=== PATIENT | female | born 1955 | race Two or more races ===

== ENCOUNTER 2023-02-10 14:00 | Emergency (ER) | payer OTHER ==
[2023-02-10 15:06] VITALS: BP 176/96
[2023-02-10] MEDS ORDERED: ACETAMINOPHEN 500 MG TAB PO ONE (15:15)
[2023-02-10] MEDS ORDERED: IBUP800T27 PO (17:54)
[2023-02-10] MEDS ORDERED: METH750T22 PO (17:54)
== END 2023-02-10 18:01 | disposition home or self-care (01) ==
LOC: ER 14:00
DX: S23.41XA Sprain of ribs, initial encounter (principal); R51.9 Headache, unspecified; I10 Essential (primary) hypertension; E11.9 Type 2 diabetes mellitus without complications; Z79.1 Long term (current) use of non-steroidal anti-inflammatories (NSAID); Z79.899 Other long term (current) drug therapy; W01.198A Fall on same level from slipping, tripping and stumbling with subsequent striking against other object, initial encounter; Y93.89 Activity, other specified; Y92.89 Other specified places as the place of occurrence of the external cause; Y99.8 Other external cause status
CPT/HCPCS: 70450; 70551; 71101

== ENCOUNTER 2023-11-23 08:34 | Emergency (ER) | payer OTHER ==
[~2023-11-23] VITALS: Ht 165.1 cm; Wt 99.7 kg
[~2023-11-23 08:34] MED LIST: IBUP-1456 PO; METH-1182 PO
[2023-11-23 09:00] VITALS: BP 157/75
[2023-11-23] MEDS ORDERED: cefTRIAXone SOD 1,000 MG VL IM ONE (09:15)
[2023-11-23] MEDS ORDERED: TETANUS-DIPTH-ACEL PERTUSSIS 0.5ML SYR Tdap IM ONE (09:15)
[2023-11-23] MEDS ORDERED: IBUPROFEN 800 MG TAB PO ONE (10:15)
[2023-11-23 10:27] VITALS: PULSE 100; RESP 18; O2SAT 95
[2023-11-23] MEDS ORDERED: CEPH500C PO (10:34)
[2023-11-23] MEDS ORDERED: IBUP-1456 PO (10:34)
[2023-11-23 10:35] VITALS: TEMP 98.6
== END 2023-11-23 10:41 | disposition home or self-care (01) ==
LOC: ER 08:34
DX: S62.630A Displaced fracture of distal phalanx of right index finger, initial encounter for closed fracture (principal); S68.110A Complete traumatic metacarpophalangeal amputation of right index finger, initial encounter; I10 Essential (primary) hypertension; E11.9 Type 2 diabetes mellitus without complications; Z79.1 Long term (current) use of non-steroidal anti-inflammatories (NSAID); Z79.899 Other long term (current) drug therapy; W18.39XA Other fall on same level, initial encounter; Y93.89 Activity, other specified; Y92.89 Other specified places as the place of occurrence of the external cause; Y99.8 Other external cause status
CPT/HCPCS: 73140; 90471; 90715; 96372; 99284; J0696

== ENCOUNTER 2025-02-17 18:30 | Inpatient (IN) | payer BC, MEDICARE ==
[2025-02-16] MEDS: cefTRIAXone 1GM/50ML D5W 50 ML IV ONE (23:00)
[~2025-02-17] VITALS: Ht 165.1 cm; Wt 94.3 kg
[~2025-02-17 18:30] MED LIST changes: +CEPH500C PO
--- NOTE | 2025-02-17 18:45 | ED.PDOC ---
SOB-HPI HPI Comments HPI: Poor Historian. 69-year-old female sent from Dr. FERRELL's clinic for incidental finding of 89% pulse ox on room air. Patient does not use oxygen at home. Patient has history of COPD. Patient was then at the clinic today for routine follow-up and lab draws that she had two weeks ago. Patient states she is always having baseline shortness of breath and this is unchanged in characteristics. Shortness of breath is worse with exertion. Patient is not on blood thinners. Past Medical History: Diabetes hypertension COPD kidney stones Past Surgical History: Varicose vein surgeries REVIEW OF SYSTEMS: CONSTITUTIONAL: Denies acute: fever, diaphoresis, chills, generalized weakness. HEAD: Denies acute: headache, photophobia Eyes: Denies acute: Double vision, vision loss, eye pain, eye discharge. EARS: Denies acute: tinnitus, hearing loss, ear discharge, ear pain, THROAT: Denies acute: sore throat, swelling, difficulty swallowing , pain with sw allowing, change in voice. NECK: Denies acute: neck pain, neck swelling, stiff neck. HEART: Denies acute : chest pain, palpitations, LUNGS: Denies acute: wheezing, cough, hemoptysis ABDOMEN: Denies acute: abdominal pain, Nausea, Vomiting, diarrhea, melena , hematemesis, hematochezia SKIN: Denies acute: rash, redness, lesions, itchiness. EXTREMITIES: Denies acute: calf pain, numbness, tingling, weakness, denies pain in extremity. Denies acute: Low back pain. Neuro: Denies acute: focal neurological deficit, motor or sensory focal neurological deficit, tremors, seizure like activity, confusion, dizziness, change in mental status, loss of bowel or bladder function, cauda equina like symptoms. : Denies acute: dysuria, hematuria, flank pain, increase in urinary frequency. PSYCH: Denies acute: hallucination, suicidal ideation, homicidal ideation. FEMALE: Denies acute: abnormal vaginal bleeding, foul odor, unusual discharge. PHYSICAL EXAM: General: ----no----acute distress, awake and alert. Head: normocephalic, atraumatic. Neck: supple, trachea is midline, no swelling. Throat: Normal phonation. Eyes:, no erythema, no purulent discharge, no proptosis, no icterus. Heart: regular rate, regular rhythm, no significant murmur appreciated. Lungs: no apparent respiratory distress, Able to speak in full sentences. No wheezing, no rhonchi, no crackles. No stridors Clear to auscultation bilaterally. Abdomen: non tender to palpation, non distended, soft, no guarding, no rebound, + bowel sounds. Neuro: Awake, Alert, oriented to name, self, situation, follows commands GCS=15. Speech is normal. Skin: no petechia, no purpura, no cyanosis, non-pale, not jaundice. Lower extremities: --no - Pitting edema no deformity, no focal swelling, no calf TTP. Makes eye contact. moves all four extremities. Face: no apparent facial droop. Ambulating in the ED independently. 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 Was a procedure done?: No Differential Dx Differential Diagnosis: Other (DDx include ACS, unstable angina, anxiety, PE, pneumothroax, neoplasm, cardiac ischemia, COPD, asthma, CHF, pleural effusion, tobacco abuse, pneumonia, hypoxia, hypercapnia, anemia., infection/sepsis., pulmonary edema. Asthma, Cardiac tamponade, infection.) X-Ray, Labs, Meds, VS Vital Signs Date Time Temp Pulse Resp B/P (MAP) Pulse Ox O2 Delivery O2 Flow Rate FiO2 02/17/25 18:57 20 94 Room Air* 0 21 02/17/25 18:47 85 02/17/25 18:43 97.9 87 20 155/53 (87) 93 97.9 Lab Test 02/17/25 21:53 02/17/25 20:12 02/17/25 19:42 02/17/25 18:56 Range/Units Troponin I High Sensitivity 3 L < 3 L 4 </=34 ng/L Blood Gas Specimen Type Arterial Blood Gas Sample Site Right radial Blood Gas Patient Temperature 37.0 Arterial Blood Date Drawn [id number] Arterial Blood pH 7.429 7.350-7.450 Arterial Blood Partial Pressure CO2 40.9 32.0-45.0 mmHg Arterial Blood Partial Pressure O2 61.5 L 83.0-108.0 mmHg Arterial Blood HCO3 26.5 21.0-28.0 mmol/L Arterial Blood Oxygen Saturation 91.1 L 94.0-98.0 % Arterial Blood Base Excess 2.0 -2.0-3.0 mmol/L Arterial Blood Oxyhemoglobin 90.2 L 94.0-98.0 % Arterial Blood Carboxyhemoglobin 0.5 0.5-1.5 % Arterial Blood Methemoglobin 0.5 0.0-1.5 % Stephen Test Modified Blood Gas Total Hemoglobin 13.20 12.0-16.0 g/dL Blood Gas Modality Room air FiO2 % 21.0 White Blood Count 10.2 4.4-10.8 10^3/uL Red Blood Count 4.70 4.0-5.20 10^6/uL Hemoglobin 12.3 12.2-16.2 g/dL Hematocrit 37.4 36.0-46.0 % Mean Corpuscular Volume 79.6 L 80.0-100.0 fL Mean Corpuscular Hemoglobin 26.3 L 28.0-32.0 pg Mean Corpuscular Hemoglobin Concent 33.0 32.0-36.0 g/dL Red Cell Distribution Width 15.8 H 11.8-14.3 % Platelet Count 376 140-450 10^3/uL Mean Platelet Volume 7.1 6.9-10.8 fL Neutrophils (%) (Auto) 64.2 37.0-80.0 % Lymphocytes (%) (Auto) 23.1 10.0-50.0 % Monocytes (%) (Auto) 9.0 0.0-12.0 % Eosinophils (%) (Auto) 2.8 0.0-7.0 % Basophils (%) (Auto) 0.9 0.0-2.0 % Neutrophils # (Auto) 6.5 1.6-8.6 10 ^3/uL Lymphocytes # (Auto) 2.4 0.4-5.4 10 ^3/uL Monocytes # (Auto) 0.9 0-1.3 10 ^3/uL Eosinophils # (Auto) 0.3 0-0.8 10 ^3/uL Basophils # (Auto) 0.1 0-0.2 10 ^3/uL Nucleated Red Blood Cells 0.1 % Sodium Level 137 136-145 mmol/L Potassium Level 4.0 3.5-5.1 mmol/L Chloride Level 102 98-107 mmol/L Carbon Dioxide Level 28 20-31 mmol/L Anion Gap 7 5-15 Blood Urea Nitrogen 15 9-23 mg/dL Creatinine 0.68 0.550-1.02 mg/dL Glomerular Filtration Rate Calc 95 >90 mL/min BUN/Creatinine Ratio 22.1 H 10.0-20.0 Serum Glucose 81 74-106 mg/dL Calcium Level 9.6 8.7-10.4 mg/dL Total Bilirubin 0.2 0.2-1.0 mg/dL Aspartate Amino Transferase (AST) 14 13-40 U/L Alanine Aminotransferase (ALT) 15 7-40 U/L Alkaline Phosphatase 86 46-116 U/L B-Type Natriuretic Peptide 38.48 0-100 pg/mL Total Protein 8.2 5.7-8.2 g/dL Albumin 4.2 3.2-4.8 g/dL Current Medications Medications (Trade) Dose Ordered Sig/Salbador Route Start Time Stop Time Status Last Admin Albuterol (Ventolin Medneb) 2.5 mg ONCE ONCE NEB 02/17/25 18:45 02/17/25 18:46 DC 02/17/25 18:57 Ipratropium [place] (Atrovent Medneb) 1 mg ONCE ONCE NEB 02/17/25 18:45 02/17/25 18:46 DC 02/17/25 18:55 Methylprednisolone Sodium Succinate (Solu Medrol) 125 mg ONCE ONCE IV 02/17/25 18:45 02/17/25 18:46 DC 02/18/25 00:09 Piperacillin Sod/ Tazobactam Sod 100 ml @ 100 mls/hr ONCE ONCE IV 02/17/25 20:00 02/17/25 20:59 DC 02/17/25 23:30 PATIENT: CHRIST MARTÍNEZDEANNAT: [id number]: [id number] : 1955 LOC: ER ROOM / BED: / AGE / SEX: 69 / F ADM STATUS: REG ER SERVICE 41 ORDERING PHYSICIAN: MARIAELENA SPENCE DO PROCEDURE(s): CXRP - CHEST PORTABLE REASON: sob ORDER NUMBER(s): [id number], ACCESSION NUMBER(s): [id number] CHEST RADIOGRAPH Indication: sob Technique: Single frontal view of the chest was obtained COMPARISON: None FINDINGS: Lines and Tubes: None Lungs: Scattered nodular densities throughout both lungs , suspicious for multifocal pneumonia. Pleura: No effusion. No pneumothorax. Cardiomediastinal contours: Unremarkable Bones: Unremarkable IMPRESSION: 1. Scattered nodular densities throughout both lungs , suspicious for multifocal pneumonia. ATED BY: HILARY BARRETT MD DICTATED DATE/TIME: 02/17/251933 SIGNED BY: HILARY BARRETT MD SIGNED DATE/TIME: 02/17/251933 Time of 1ST Reevaluation: 01:04 Reevaluation 1ST: Improved Patient Education/Counseling: Diagnosis, Treatment Family Education/Counseling: Other Comments Patient presented with the above HPI.--dyspnea----workup was initiated. patient was found with the above mentioned diagnosis. the following medications were ordered: please refer to order lists of meds and tests obtained by myself Dr. Spence. Patient ED course and VS have been stabilized. Patient has been reassessed in the ED and remained in a stable condition. Pertinent incidental findings were discussed with the patient and/or family. Patient/family voices understanding and is agreeable with plan. Patient has been observed in the ED adequate length of time to insure improvement/stability. Escalation of care considered: Consideration of escalation to observation or admission Patient was ADMITTED to the medicine team for further evaluation and treatment of their presentation. All the reports of any imaging studies that were ordered by myself were reviewed by myself. Departure 1 Departure Time of Disposition: 19:52 Impression: Primary Impression: Multifocal pneumonia Additional Impression: Hypoxia Disposition: ADMITTED INPATIENT Admit to: [facility] Condition: Guarded Discharged With: Self Critical Care Note Critical Care Time?: Yes (35 min-critical care time only) Heart Score Heart Score: Heart Score Response (Comments) Value History Slightly Suspicious 0 EKG Normal 0 Age >65 2 Risk Factors 1 or 2 risk factors 1 Troponin Normal limit 0 Total 3 I personally scribed for MARIAELENA SPENCE DO ([email or web address]) on 02/17/25 at 18:46. Electronically submitted by Cody Palmer ([email or web address]). I personally scribed for MARIAELENA SPENCE DO ([email or web address]) on 02/17/25 at 22:58. Electronically submitted by Mario Atkins ([email or web address]). MARIAELENA SPENCE DO Feb 17, 2025 18:45
[2025-02-17] MEDS: IPRATROPIUM BROM 0.5 MG/2.5ML INH SOL NEB ONE (18:55)
[2025-02-17] MEDS: ALBUTEROL SULF 2.5 MG/0.5ML(0.5%) NEB SOLN NEB ONE (18:57)
[2025-02-17 19:17] LABS: Basophils # (auto) 0.1 10 ^3/uL (0-0.2); Basophils % (auto) 0.9 % (0.0-2.0); Eosinophils # (auto) 0.3 10 ^3/uL (0-0.8); Eosinophils % (auto) 2.8 % (0.0-7.0); Hematocrit 37.4 % (36.0-46.0); Hemoglobin 12.3 g/dL (12.2-16.2); Lymphocytes # (auto) 2.4 10 ^3/uL (0.4-5.4); Lymphocytes % (auto) 23.1 % (10.0-50.0); Mean Corpuscular Hemoglobin 26.3 pg (28.0-32.0); Mean Corpuscular Volume 79.6 fL (80.0-100.0); Monocytes # (auto) 0.9 10 ^3/uL (0-1.3); Neutrophils # (auto) 6.5 10 ^3/uL (1.6-8.6); Neutrophils % (auto) 64.2 % (37.0-80.0); Nucleated Red Blood Cells % 0.1 %; Platelet Count (auto) 376 10^3/uL (140-450); Red Cell Distribution Width 15.8 % (11.8-14.3); White Blood Cell 10.2 10^3/uL (4.4-10.8)
--- NOTE | 2025-02-17 19:36 | DVH ---
CHEST RADIOGRAPH Indication: sob Technique: Single frontal view of the chest was obtained COMPARISON: None FINDINGS: Lines and Tubes: None Lungs: Scattered nodular densities throughout both lungs , suspicious for multifocal pneumonia. Pleura: No effusion. No pneumothorax. Cardiomediastinal contours: Unremarkable Bones: Unremarkable IMPRESSION: 1. Scattered nodular densities throughout both lungs , suspicious for multifocal pneumonia.
[2025-02-17 19:38] LABS: Alanine Aminotransferase 15 U/L (7-40); Albumin 4.2 g/dL (3.2-4.8); Alkaline Phosphatase 86 U/L (46-116); Anion Gap 7 (5-15); Aspartate Aminotransferase 14 U/L (13-40); BUN/Creatinine Ratio 22.1 (10.0-20.0); Blood Urea Nitrogen 15 mg/dL (9-23); Calcium 9.6 mg/dL (8.7-10.4); Carbon Dioxide 28 mmol/L (20-31); Chloride 102 mmol/L (98-107); Glucose 81 mg/dL (74-106); Sodium 137 mmol/L (136-145)
[2025-02-17 19:39] LABS: Bilirubin, Total 0.2 mg/dL (0.2-1.0); Total Protein 8.2 g/dL (5.7-8.2)
[2025-02-17] MEDS ORDERED: ONDANSETRON HCL 4 MG/2 ML VIAL IV PRN (23:15)
[2025-02-17] MEDS ORDERED: ACETAMINOPHEN 325 MG TAB PO PRN (23:15)
--- NOTE | 2025-02-17 23:18 | DVHHPRES ---
History of Present Illness Resident Creating Document: EDINSON STEWART RESIDENT History of Present Illness Patient is a 69-year-old female with past medical history of COPD, diabetes, hypertension who comes to the ER at the direction of her PCP. According to the patient and daughter, patient went to attend her regularly scheduled appointment with her PCP where her SpO2 was noted to be 89%, she received breathing treatment at the PCP's office but SpO2 did not improve and patient was subsequently told to go to the hospital. PCP is Dr. Jules. In the ER CXR showed scattered nodular densities possible multifocal pneumonia. On review of systems patient notes fatigue, cough, nausea and palpitations. Physical exam patient is noted to have trace wheezes throughout and 1+ lower extremity edema. Past Medical History COPD, diabetes, hypertension Past Surgical History Varicose vein surgery Smoke: No ALCOHOL: none Drugs: None Lives: with Family Review of Systems Constitutional: Yes: Malaise; No: Fever, Chills, Sweats, Weakness, Other Eyes: No: Pain, Vision change, Conjunctivae inflammation, Eyelid inflammation, Other, Redness ENT: No: Ear pain, Ear discharge, Nose pain, Nose discharge, Nose congestion, Mouth pain, Mouth swelling, Throat pain, Throat swelling, Other Respiratory: Cough; No: Dry, Shortness of breath, SOB with excertion, Wheezing, Hemoptysis, Pleuritic Pain, Sputum, Wheezing, Other Cardiovascular: Palpitations; No: Chest Pain, Orthopnea, Paroxysmal Noc. Dyspnea, Edema, Lt Headedness, Other Gastrointestinal: Nausea; No: Vomiting, Abdominal Pain, Diarrhea, Constipation, Melena, Hematochezia, Other Genitourinary: No Dysuria, No Frequency, No Incontinence, No Hematuria, No Retention, No Other Musculoskeletal: No: other, neck pain, shoulder pain, arm pain, back pain, hand pain, leg pain, foot pain Skin: No: Rash, Lesions, Jaundice, Bruising, Other Neurological: No: Weakness, Numbness, Incoordination, Change in speech, Confusion, Seizures, Other Allergies: Coded Allergies: NO KNOWN ALLERGIES (Unverified , 02/10/23) Exam Vital Signs Vital Signs Date Time Temp Pulse Resp B/P (MAP) Pulse Ox O2 Delivery O2 Flow Rate FiO2 02/17/25 18:57 20 94 Room Air* 0 21 02/17/25 18:47 85 02/17/25 18:43 97.9 155/53 (87) 97.9 General Appearance: Alert, Oriented X3, Cooperative, mild distress HEENT: Atraumatic, PERRLA, EOMI, Mucous membr. moist/pink Respiratory: Normal air movement, Other (Scattered expiratory wheezes) Cardiovascular: Regular rate, Normal S1, Normal S2 Abdominal: Normal bowel sounds, Soft, No tenderness Extremities: Normal pulses, Other (1+ lower extremity edema) Skin: No rashes Neuro: Normal gait, Normal speech, Strength at 5/5 X4 ext, Sensation intact Psych/Mental Status: Mental status NL, Mood NL Labs/Xrays Labs Test 02/17/25 21:53 02/17/25 20:12 02/17/25 18:56 Range/Units Troponin I High Sensitivity 3 L </=34 ng/L Blood Gas Specimen Type Arterial Blood Gas Sample Site Right radial Blood Gas Patient Temperature 37.0 Arterial Blood Date Drawn [id number] Arterial Blood pH 7.429 7.350-7.450 Arterial Blood Partial Pressure CO2 40.9 32.0-45.0 mmHg Arterial Blood Partial Pressure O2 61.5 L 83.0-108.0 mmHg Arterial Blood HCO3 26.5 21.0-28.0 mmol/L Arterial Blood Oxygen Saturation 91.1 L 94.0-98.0 % Arterial Blood Base Excess 2.0 -2.0-3.0 mmol/L Arterial Blood Oxyhemoglobin 90.2 L 94.0-98.0 % Arterial Blood Carboxyhemoglobin 0.5 0.5-1.5 % Arterial Blood Methemoglobin 0.5 0.0-1.5 % Stephen Test Modified Blood Gas Total Hemoglobin 13.20 12.0-16.0 g/dL Blood Gas Modality Room air FiO2 % 21.0 White Blood Count 10.2 4.4-10.8 10^3/uL Red Blood Count 4.70 4.0-5.20 10^6/uL Hemoglobin 12.3 12.2-16.2 g/dL Hematocrit 37.4 36.0-46.0 % Mean Corpuscular Volume 79.6 L 80.0-100.0 fL Mean Corpuscular Hemoglobin 26.3 L 28.0-32.0 pg Mean Corpuscular Hemoglobin Concent 33.0 32.0-36.0 g/dL Red Cell Distribution Width 15.8 H 11.8-14.3 % Platelet Count 376 140-450 10^3/uL Mean Platelet Volume 7.1 6.9-10.8 fL Neutrophils (%) (Auto) 64.2 37.0-80.0 % Lymphocytes (%) (Auto) 23.1 10.0-50.0 % Monocytes (%) (Auto) 9.0 0.0-12.0 % Eosinophils (%) (Auto) 2.8 0.0-7.0 % Basophils (%) (Auto) 0.9 0.0-2.0 % Neutrophils # (Auto) 6.5 1.6-8.6 10 ^3/uL Lymphocytes # (Auto) 2.4 0.4-5.4 10 ^3/uL Monocytes # (Auto) 0.9 0-1.3 10 ^3/uL Eosinophils # (Auto) 0.3 0-0.8 10 ^3/uL Basophils # (Auto) 0.1 0-0.2 10 ^3/uL Nucleated Red Blood Cells 0.1 % Sodium Level 137 136-145 mmol/L Potassium Level 4.0 3.5-5.1 mmol/L Chloride Level 102 98-107 mmol/L Carbon Dioxide Level 28 20-31 mmol/L Anion Gap 7 5-15 Blood Urea Nitrogen 15 9-23 mg/dL Creatinine 0.68 0.550-1.02 mg/dL Glomerular Filtration Rate Calc 95 >90 mL/min BUN/Creatinine Ratio 22.1 H 10.0-20.0 Serum Glucose 81 74-106 mg/dL Calcium Level 9.6 8.7-10.4 mg/dL Total Bilirubin 0.2 0.2-1.0 mg/dL Aspartate Amino Transferase (AST) 14 13-40 U/L Alanine Aminotransferase (ALT) 15 7-40 U/L Alkaline Phosphatase 86 46-116 U/L B-Type Natriuretic Peptide 38.48 0-100 pg/mL Total Protein 8.2 5.7-8.2 g/dL Albumin 4.2 3.2-4.8 g/dL Assessment/Plan Assessment/Plan Community-acquired multifocal pneumonia, Gram-positive versus Gram-negative COPD exacerbation due to above - CXR: Scattered nodular densities throughout both lungs, suspicious for multifocal pneumonia - IV azithromycin, IV ceftriaxone - ipratropium and albuterol med nebs - ordered respiratory culture - ordered echocardiogram - COVID and influenza testing Hypertension Hypertensive heart disease - resumed home medication losartan 25 mg - resumed home medication amlodipine 5 mg Type 2 diabetes - ordered Hb A1c - mild sliding scale insulin Depression, likely MDD - resumed patient's home medication escitalopram 10 mg PUD prophylaxis: protonix 40mg DVT prophylaxis: Levonox 40mg Goals of care: Full code, discussed for >16 minutes on 02/17/2025 Plan discussed with patient and patient's daughter Plan discussed with Dr. Ozuna Plan discussed with: Patient, Daughter, Other (RN) Date of Service: Feb 17, 2025 Billing Provider: ABDIEL OZUNA MD Common Visit Codes: [id number] INP/OBS CARE (HIGH) Secondary Visit Codes: [id number] CARE PLAN 30 MINUTES EDINSON STEWART Feb 17, 2025 23:18 ABDIEL OZUNA MD Feb 18, 2025 21:14
[2025-02-17] MEDS: PIPERACILLIN-TAZOB 3.375GM 100 ML IV ONE (23:30)
[2025-02-17 23:34] VITALS: BP 155/53; PULSE 85; RESP 20; TEMP 97.9; O2SAT 94
[2025-02-17 23:44] VITALS: PULSE 89; RESP 19; O2SAT 96
[2025-02-18] VITALS (13 sets, daily range): BP systolic 113–160; BP diastolic 38–54; PULSE 73–101; RESP 17–22; TEMP 98.1–98.7; O2SAT 90–99
[2025-02-18] MEDS ORDERED: IPRATROPIUM BROM 0.5 MG/2.5ML INH SOL NEB SCH
[2025-02-18] MEDS: methylPREDNISolone SOD SUCC 125 MG/2 ML VL IV ONE (00:09)
[2025-02-18] MEDS: AZITHROMYCIN 500MG/ 250ML 250 ML IV ONE (00:10)
[2025-02-18 02:37] LABS: COVID19 ANTIGEN SOFIA FIA NEGATIVE (NEGATIVE); Rapid Influenza A Negative (Negative); Rapid Influenza B Negative (Negative)
[2025-02-18] MEDS ORDERED: DEXTROSE (50%) 50ML SYRG IV PRN (04:00)
[2025-02-18] MEDS ORDERED: METF-370 PO (04:09)
[2025-02-18] MEDS ORDERED: BUDE1AER16 PO (04:09)
[2025-02-18] MEDS ORDERED: ESCI1TAB36 PO (04:09)
[2025-02-18] MEDS ORDERED: LOS25T PO (04:09)
[2025-02-18] MEDS ORDERED: LOVA20TA4 PO (04:09)
[2025-02-18] MEDS: PANTOPRAZOLE 40 MG TAB PO SCH (04:10)
[2025-02-18] MEDS: LOSARTAN POTASSIUM 25 MG TAB PO SCH (04:11)
--- NOTE | 2025-02-18 04:23 | ECG ---
[facility] Test Date: 2025-02-17 Test Time: 18:47:12 Pat Name: CHRIST MARTÍNEZ Department: ER Room: 0246 B Gender: F Product Test Specialist: RUSSELL : 1955 Requested By: MARIAELENA SPENCE Order Number: [id number] Reading MD: Willi Stallworth Measurements Intervals [place] Rate: 85 P: 71 [place]: 178 QRS: 65 QRSD: 83 T: 62 QT: 349 QTc: 415 Interpretive Statements Sinus rhythm ST elevation, consider inferior injury Electronically Signed On 02-19-2025 13:09:01 PDT by Willi Stallworth Please click the below link to view image of tracing.
[2025-02-18] MEDS: ALBUTEROL SULF 2.5 MG/0.5ML(0.5%) NEB SOLN NEB SCH (06:11)
[2025-02-18] MEDS: IPRATROPIUM BROM 0.5 MG/2.5ML INH SOL NEB SCH (06:15)
[2025-02-18] MEDS: InsuLIN REG 1unit/0.01ml Soln (100units/ml) SC SCH (07:00)
[2025-02-18] MEDS: ACCU-CHEK COMFORT CURVE STRIP VI SCH (07:21)
[2025-02-18] MEDS: amLODIPine BESYLATE 5 MG TAB PO SCH (09:23)
[2025-02-18] MEDS: CITALOPRAM HYDROBR 20 MG TAB PO SCH (09:23)
[2025-02-18] MEDS: cefTRIAXone 1GM/50ML D5W 50 ML IV SCH (09:23)
[2025-02-18] MEDS: ENOXAPARIN SOD 40 MG/0.4 ML SYRINGE SC SCH (09:24)
[2025-02-18 09:50] LABS: Basophils # (auto) 0 10 ^3/uL (0-0.2); Basophils % (auto) 0.2 % (0.0-2.0); Eosinophils # (auto) 0 10 ^3/uL (0-0.8); Hemoglobin 13.2 g/dL (12.2-16.2); Lymphocytes # (auto) 0.9 10 ^3/uL (0.4-5.4)
[2025-02-18 09:53] LABS: Alanine Aminotransferase 16 U/L (7-40); Albumin 4.5 g/dL (3.2-4.8); Alkaline Phosphatase 96 U/L (46-116); Anion Gap 10 (5-15); Aspartate Aminotransferase 15 U/L (13-40); BUN/Creatinine Ratio 18.5 (10.0-20.0); Bilirubin, Total 0.3 mg/dL (0.2-1.0); Blood Urea Nitrogen 12 mg/dL (9-23); Calcium 9.9 mg/dL (8.7-10.4); Carbon Dioxide 26 mmol/L (20-31); Chloride 101 mmol/L (98-107); Potassium 3.9 mmol/L (3.5-5.1); Sodium 137 mmol/L (136-145)
[2025-02-18 09:54] LABS: Hematocrit 39.5 % (36.0-46.0); Lymphocytes % (auto) 10.1 % (10.0-50.0); Mean Corpuscular Hemoglobin 26.7 pg (28.0-32.0); Mean Corpuscular Hgb Conc. 33.3 g/dL (32.0-36.0); Monocytes # (auto) 0.1 10 ^3/uL (0-1.3); Monocytes % (auto) 0.6 % (0.0-12.0); Neutrophils # (auto) 7.7 10 ^3/uL (1.6-8.6); Neutrophils % (auto) 89.1 % (37.0-80.0); Platelet Count (auto) 383 10^3/uL (140-450); Red Blood Cells 4.94 10^6/uL (4.0-5.20); Red Cell Distribution Width 15.9 % (11.8-14.3); White Blood Cell 8.7 10^3/uL (4.4-10.8)
[2025-02-18 09:55] LABS: Glucose 169 mg/dL (74-106); Total Protein 8.8 g/dL (5.7-8.2)
--- NOTE | 2025-02-18 10:05 | DVHPNRES ---
Progress Note Date Seen: Feb 18, 2025 Resident Creating Document: CHRIST SILVA RESIDENT Has the PT tested + for MRSA If YES, has PT been informed?: No Medical Necessity Reason Pt with a Central, PICC or Fol: No Subjective Review of Systems Patient is a 69-year-old female with past medical history of COPD, diabetes, hypertension who comes to the ER at the direction of her PCP. According to the patient and daughter, patient went to attend her regularly scheduled appointment with her PCP where her SpO2 was noted to be 89%, she received breathing treatment at the PCP's office but SpO2 did not improve and patient was subsequently told to go to the hospital. PCP is Dr. Jules. In the ER CXR showed scattered nodular densities possible multifocal pneumonia. On review of systems patient notes fatigue, cough, nausea and palpitations. Physical exam patient is noted to have trace wheezes throughout and 1+ lower extremity edema. Past Medical History COPD, diabetes, hypertension Past Surgical History Varicose vein surgery Patient stated having long covid, persistent cough since 2019 Objective vital signs Vital Sign Date Time Temp Pulse Resp B/P (MAP) Pulse Ox O2 Delivery O2 Flow Rate FiO2 02/18/25 09:24 133/50 02/18/25 09:08 98.7 90 18 92 98.7 02/18/25 06:15 Room Air 0.0 02/18/25 06:15 21 Total Intake and Output 02/17/25 02/17/25 02/18/25 15:00 23:00 07:00 Intake Total 400 ml Balance 400 ml medications Current Medications Medications Dose Ordered Sig/Salbador Route Start Time Stop Time Status Last Admin Dose Admin Acetaminophen 325 mg Q4HP PRN PO 02/17/25 23:15 Ondansetron HCl 4 mg Q4HP PRN IV 02/17/25 23:15 Enoxaparin Sodium 40 mg DAILY SC 02/18/25 10:00 02/18/25 09:24 40 MG Albuterol 2.5 mg Q6HWA NEB 02/18/25 06:00 02/18/25 06:11 2.5 MG Azithromycin 250 ml @ 125 mls/hr Q24H IV 02/18/25 21:00 Ceftriaxone Sodium 50 ml @ 100 mls/hr DAILY@09 IV 02/18/25 09:00 02/18/25 09:23 100 MLS/HR Ipratropium [place] 0.5 mg Q6HWA NEB 02/18/25 06:00 02/18/25 06:15 0.5 MG Pantoprazole Sodium 40 mg DAILY@0600 PO 02/18/25 06:00 02/18/25 04:10 40 MG Losartan Potassium 25 mg DAILY PO 02/18/25 03:45 02/18/25 09:24 25 MG Amlodipine Besylate 5 mg DAILY PO 02/18/25 10:00 02/18/25 09:23 5 MG Citalopram Hydrobromide 20 mg DAILY PO 02/18/25 10:00 02/18/25 09:23 20 MG Diagnostic Test (Pha) 1 strip ACHS 02/18/25 07:00 02/18/25 07:21 1 STRIP Insulin Human Regular ACHS SC 02/18/25 07:00 Dextrose 50 ml UD PRN IV 02/18/25 04:00 Examination General Appearance: Alert, Oriented X3, Cooperative, mild distress HEENT: Atraumatic, PERRLA, EOMI, Mucous membr. moist/pink Respiratory: Normal air movement, Other (Scattered expiratory wheezes) Cardiovascular: Regular rate, Normal S1, Normal S2 Abdominal: Normal bowel sounds, Soft, No tenderness Extremities: Normal pulses, Other (1+ lower extremity edema) Skin: No rashes Neuro: Normal gait, Normal speech, Strength at 5/5 X4 ext, Sensation intact Psych/Mental Status: Mental status NL, Mood NL laboratory and microbiology Laboratory Tests 02/18/25 08:51 Test 02/18/25 08:51 Range/Units Serum Glucose 169 H 74-106 mg/dL Problem List/Assessment/Plan Problem List/Assessment/Plan Community-acquired multifocal pneumonia, Gram-positive versus Gram-negative COPD exacerbation due to above Possible long covid - CXR: Scattered nodular densities throughout both lungs, suspicious for multifocal pneumonia - IV azithromycin, IV ceftriaxone - ipratropium and albuterol med nebs - pending respiratory culture - pending echocardiogram - COVID and influenza testing: negative -pending high resolution ct scan Hypertension Hypertensive heart disease - resumed home medication losartan 25 mg - resumed home medication amlodipine 5 mg Type 2 diabetes - Hb A1c 6.7 - mild sliding scale insulin Depression, likely MDD citalopram PUD prophylaxis: protonix 40mg DVT prophylaxis: Levonox 40mg Goals of care: Full code, discussed for >16 minutes on 02/17/2025 Plan discussed with patient and patient's daughter Plan discussed with Dr. Anthony Plan discussed with: Patient, Other (rn) Date of Service: Feb 18, 2025 Billing Provider: JILLIAN ANTHONY MD Common Visit Codes: [id number] INP/OBS CARE(HIGH) CHRIST SILVA RESIDENT Feb 18, 2025 10:05 JILLIAN ANTHONY MD Feb 19, 2025 22:27
[2025-02-18 10:39] LABS: Folate (Folic Acid) 30.48 ng/mL (>5.38)
--- NOTE | 2025-02-18 13:50 | DVH ---
CT Chest without intravenous contrast INDICATION: multiple nodules in xray TECHNIQUE: Multidetector spiral CT of the chest was performed from the lung apices to the upper abdom en. Axial, coronal and sagittal multiplanar reformats were performed. High-resolution CT protocol uti lized. Radiation Dose : 1. Chest: CTDI volume is 9.69 mGy. Dose-length product is 954.59 mGy*cm The dose indicators for CT are the volume Computed Tomography (CT) Dose Index (CTDIvol) and the Dose Length Product (DLP), and are measured in units of mGy and mGy-cm, respectively. These indicators are not patient dose, but values generated from the CT scanner acquisition factors. The report includes radiation exposure data for exposures received during this examination. Comparison: None Findings: Lower neck: Normal thyroid. Lungs: Multifocal patchy mostly peripheral airspace opacities most prominent in the right upper lobe and left lung base. Heart/Vascular Structures: Coronary artery calcifications. Lymph Nodes: No adenopathy Pleura: No pleural effusion or significant pneumothorax. Musculoskeletal: Multilevel degenerative changes of the spine. Soft tissues: Normal. Upper abdomen: Limited portions of the upper abdomen are unremarkable. IMPRESSION: Findings may represent multifocal airspace disease. Radiation optimization: All CT scans at this facility use at least one of these dose optimization rogelio hniques: automated exposure control mA and/or kV adjustment per patient size (includes targeted exam s where dose is matched to clinical indication) or iterative reconstruction.
--- NOTE | 2025-02-18 16:29 | DVHSR ---
APPROVED REPORT EXAM: Two-dimensional and M-mode echocardiogram with Doppler and color Doppler. Blood Pressure: 160/54 mmHg INDICATION Peripheral Edema chf? RISK FACTORS Height: 5'5", Weight: 206 DIMENSIONS LVDd4.4 (3.8-5.7cm)LA (2D)4.8 (1.9-4.0cm)Aortic Root (2.0-3.7cm) LVDs2.7 (2.5-4.0cm)LA (MM) (1.9-4.0cm)Aortic Cusp Exc (1.5-2.0cm) EF (%) 69.0 (55-70%)Rt. Atrium4.0 (1.9-4.0cm)Asc. Aorta cm IVSd1.2 (0.7-1.1cm)RV (D)3.8 (1.8-2.4cm) PWd1.0 (0.7-1.1cm) Mitral Valve MitralMitral Stenosis E wavem/sMV Mean GR.10mmHg A wavem/sMV Peak GR.22mmHg E/A ratio0.02D MVAcm2 Aortic Valve Aortic ValveAortic Stenosis V11.59m/Rajan Mean GR.23mmHg V23.62m/Rajan Peak GR.60mmHg LVOT Diameter2.1 (1.8-2.4cm)Doppler AVA1.52cm2 Pulmonic Valve V21.12m/s LEFT VENTRICLE LVEF hyperdynamic >70% Asymmetric septal hypertrophy The echo findings are consistent with left ventricular outflow obstruction. AV velocities during Valsala 4.5 Vmax, 82 maxPG, 32 mean PG MITRAL VALVE Posterior annulus calcified, leaflet thickened. Can not rule out small vegetation. Possible left atri al clot vs vegetation. Recommend clinical correlation and IHSAN as indicated Other Information Quality : Technically LimitedRhythm : Technically limited study due to body habitus. Conclusion LVEF hyperdynamic >70% Asymmetric septal hypertrophy The echo findings are consistent with left ventricular outflow obstruction. AV/LOVT velocities during Valsala 4.5 Vmax, 82 maxPG, 32 mean PG RV function normal Posterior annulus calcified, leaflet thickened. Can not rule out small vegetation. Possible left atri al clot vs vegetation. Recommend clinical correlation and IHSAN as indicated left atrium moderately dilated
[2025-02-18] MEDS: AZITHROMYCIN 500MG/ 250ML 250 ML IV SCH (21:31)
[2025-02-19] VITALS (14 sets, daily range): BP systolic 116–146; BP diastolic 44–60; PULSE 64–80; RESP 16–22; TEMP 97.6–98.1; O2SAT 9–100
--- NOTE | 2025-02-19 15:22 | DVHPNRES ---
Progress Note Date Seen: Feb 19, 2025 Resident Creating Document: CHRIST SILVA RESIDENT Has the PT tested + for MRSA If YES, has PT been informed?: No Medical Necessity Reason Pt with a Central, PICC or Fol: No Subjective Review of Systems Patient is a 69-year-old female with past medical history of COPD, diabetes, hypertension who comes to the ER at the direction of her PCP. According to the patient and daughter, patient went to attend her regularly scheduled appointment with her PCP where her SpO2 was noted to be 89%, she received breathing treatment at the PCP's office but SpO2 did not improve and patient was subsequently told to go to the hospital. PCP is Dr. Jules. In the ER CXR showed scattered nodular densities possible multifocal pneumonia. On review of systems patient notes cough, nausea and palpitations. Physical exam patient is noted to have trace wheezes throughout and 1+ lower extremity edema. Past Medical History COPD, diabetes, hypertension Past Surgical History Varicose vein surgery Patient stated having long covid, persistent cough since 2019 ECHO TT: LVEF hyperdynamic >70% Asymmetric septal hypertrophy The echo findings are consistent with left ventricular outflow obstruction. AV/LOVT velocities during Valsala 4.5 Vmax, 82 maxPG, 32 mean PG RV function normal Posterior annulus calcified, leaflet thickened. Can not rule out small vegetation. Possible left atrial clot vs vegetation. Recommend clinical correlation and IHSAN as indicated left atrium moderately dilated ECHO findings discussed with the patient, she states she knew that <<her heart was big>> but she didnt fu with any part time receptionist, she denies syncope or dyspnea, but stated chronic cough, findings were discussed with part time receptionist who will schedule her for ECHO TE Objective vital signs Vital Sign Date Time Temp Pulse Resp B/P (MAP) Pulse Ox O2 Delivery O2 Flow Rate FiO2 02/19/25 14:08 98.1 76 20 136/58 (84) 94 98.1 02/19/25 11:16 Room Air* 0 21 Total Intake and Output 02/18/25 02/18/25 02/19/25 15:00 23:00 07:00 Intake Total 50 ml 500 ml 590 ml Balance 50 ml 500 ml 590 ml medications Current Medications Medications Dose Ordered Sig/Salbador Route Start Time Stop Time Status Last Admin Dose Admin Acetaminophen 325 mg Q4HP PRN PO 02/17/25 23:15 Ondansetron HCl 4 mg Q4HP PRN IV 02/17/25 23:15 Enoxaparin Sodium 40 mg DAILY SC 02/18/25 10:00 02/19/25 09:48 40 MG Albuterol 2.5 mg Q6HWA NEB 02/18/25 06:00 02/19/25 11:16 2.5 MG Azithromycin 250 ml @ 125 mls/hr Q24H IV 02/18/25 21:00 02/18/25 21:31 125 MLS/HR Ceftriaxone Sodium 50 ml @ 100 mls/hr DAILY@09 IV 02/18/25 09:00 02/19/25 09:46 100 MLS/HR Ipratropium [place] 0.5 mg Q6HWA NEB 02/18/25 06:00 02/19/25 11:16 0.5 MG Pantoprazole Sodium 40 mg DAILY@0600 PO 02/18/25 06:00 02/19/25 05:11 40 MG Losartan Potassium 25 mg DAILY PO 02/18/25 03:45 02/19/25 09:48 25 MG Amlodipine Besylate 5 mg DAILY PO 02/18/25 10:00 02/19/25 09:47 5 MG Citalopram Hydrobromide 20 mg DAILY PO 02/18/25 10:00 02/19/25 09:47 20 MG Diagnostic Test (Pha) 1 strip ACHS 02/18/25 07:00 02/19/25 11:46 1 STRIP Insulin Human Regular ACHS SC 02/18/25 07:00 Dextrose 50 ml UD PRN IV 02/18/25 04:00 Examination General Appearance: Alert, Oriented X3, Cooperative, mild distress HEENT: Atraumatic, PERRLA, EOMI, Mucous membr. moist/pink Respiratory: Normal air movement, Other (Scattered expiratory wheezes) Cardiovascular: Regular rate, Normal S1, Normal S2 Abdominal: Normal bowel sounds, Soft, No tenderness Extremities: Normal pulses, Other (1+ lower extremity edema) Skin: No rashes Neuro: Normal gait, Normal speech, Strength at 5/5 X4 ext, Sensation intact Psych/Mental Status: Mental status NL, Mood NL laboratory and microbiology Laboratory Tests 02/18/25 08:51 Test 02/18/25 08:51 Range/Units Serum Glucose 169 H 74-106 mg/dL Problem List/Assessment/Plan Problem List/Assessment/Plan #LVEF hyperdynamic >70% #Asymmetric septal hypertrophy #left ventricular outflow obstruction. #Posterior annulus calcified, leaflet thickened. #left atrium moderately dilated Cardiology consulted Start BB Echo TE tomorrow am Community-acquired multifocal pneumonia, Gram-positive versus Gram-negative COPD exacerbation due to above Possible long covid - CXR: Scattered nodular densities throughout both lungs, suspicious for multifocal pneumonia - IV azithromycin, IV ceftriaxone - ipratropium and albuterol med nebs - pending respiratory culture - pending echocardiogram - COVID and influenza testing: negative -pending high resolution ct scan Hypertension Hypertensive heart disease - resumed home medication losartan 25 mg - resumed home medication amlodipine 5 mg Type 2 diabetes - Hb A1c 6.7 - mild sliding scale insulin Depression, likely MDD citalopram PUD prophylaxis: protonix 40mg DVT prophylaxis: Levonox 40mg Goals of care: Full code, discussed for >16 minutes on 02/17/2025 Plan discussed with patient and patient's daughter Plan discussed with Dr. Anthony Plan discussed with: Patient, Other (rn) My Orders My Orders Orders - CHRIST SILVA Procedure Category Date Status Time * Cardiology Consult CONS 02/19/25 Transmitted 14:25 Npo (Nothing By DIET 02/19/25 Transmitted Mouth) Diet Dinner Date of Service: Feb 19, 2025 Billing Provider: JILLIAN ANTHONY MD Common Visit Codes: [id number] INP/OBS CARE(HIGH) CHRIST SILVA RESIDENT Feb 19, 2025 15:21 JILLIAN ANTHONY MD Feb 19, 2025 22:31
--- NOTE | 2025-02-19 15:46 | DVHINCON2 ---
Date Seen: Feb 19, 2025 Referring Physician MD Gus resident Reason for Consultation IHSAN due to abnormal findings on echo History of Present Illness This is a 69-year-old female patient who presents to the emergency room after being advised by her primary care physician. The patient reports that she was at her primary care physician's office for a follow up visits for lab results. While there, the patient reports that her O2 saturation was noted to be as low as 89%. She was advised to come to the emergency room for further evaluation. Imaging done in the emergency room revealed possible pneumonia. Cardiology is now being consulted at this time for a possible transesophageal echocardiogram following an abnormal transthoracic echocardiogram. Initial twelve lead electrocardiogram reveals normal sinus rhythm with peaked T-waves. The patient denies any cardiac symptoms at time of assessment. Troponin levels have been negative. Significant past medical history includes hypertension, hyperlipidemia, varicose veins, COPD, type 2 diabetes mellitus, anxiety, and obesity. Past Medical History Past medical history reviewed. No other significant than mentioned above. Past Surgical History Kidney stones status post lithotripsy Varicose vein surgery Family History: Patient reports no known family medical history. Family History Family history reviewed. Social History Denies the use of tobacco, alcohol or illicit drugs. Allergies: Coded Allergies: NO KNOWN ALLERGIES (Unverified , 02/10/23) Home Meds Reported Medications Escitalopram Oxalate (ESCITALOPRAM OXALATE) 10 Mg Tab, 1 TAB PO DAILY 02/18/25 Budesonide-Formoterol Fumarate (Breyna 160-4.5 Mcg/Act) 1 Aer Aer, 2 PUFF PO BID 02/18/25 Lovastatin (Lovastatin) 20 Mg Tab, 1 TAB PO HS 02/18/25 Metformin Hydrochloride (Metformin Hcl) 500 Mg Tab, 1 TAB PO DAILY 02/18/25 Losartan Potassium (Losartan Potassium) 25 Mg Tab, 1 TAB PO DAILY 02/18/25 Home Meds Home medications reviewed. Current Medications Current Medications Medications (Trade) Dose Ordered Sig/Salbador Route PRN Reason Start Time Stop Time Status Last Admin Azithromycin 250 ml @ 125 mls/hr Q24H IV 02/18/25 21:00 02/18/25 21:31 Metoprolol Succinate (Toprol Xl) 25 mg DAILY PO 02/19/25 15:45 UNV Review of Systems Constitutional: No symptom reported Ears, Nose, & Throat: No symptom reported Eyes: No symptom reported Neurological: No symptoms reported Pulmonary/Respiratory: No symptoms reported Cardiovascular: No symptom reported Gastrointestinal: No symptom reported Genitourinary: No symptom reported Musculoskeletal: No symptom reported Skin: No symptom reported Psychiatric: No symptom reported Endocrine: No symptom reported Hematologic/Lymphatic: No symptom reported Vital Signs Vital Signs Date Time Temp Pulse Resp B/P (MAP) Pulse Ox O2 Delivery O2 Flow Rate FiO2 02/19/25 14:08 98.1 76 20 136/58 (84) 94 98.1 02/19/25 11:16 Room Air* 0 21 Labs/Diagnostic Data Labs Test 02/19/25 05:14 02/18/25 08:51 02/18/25 01:50 02/17/25 21:53 Range/Units POC Glucose 94 70-106 mg/dl White Blood Count 8.7 4.4-10.8 10^3/uL Red Blood Count 4.94 4.0-5.20 10^6/uL Hemoglobin 13.2 12.2-16.2 g/dL Hematocrit 39.5 36.0-46.0 % Mean Corpuscular Volume 80.0 80.0-100.0 fL Mean Corpuscular Hemoglobin 26.7 L 28.0-32.0 pg Mean Corpuscular Hemoglobin Concent 33.3 32.0-36.0 g/dL Red Cell Distribution Width 15.9 H 11.8-14.3 % Platelet Count 383 140-450 10^3/uL Mean Platelet Volume 7.3 6.9-10.8 fL Neutrophils (%) (Auto) 89.1 H 37.0-80.0 % Lymphocytes (%) (Auto) 10.1 10.0-50.0 % Monocytes (%) (Auto) 0.6 0.0-12.0 % Eosinophils (%) (Auto) 0.0 0.0-7.0 % Basophils (%) (Auto) 0.2 0.0-2.0 % Neutrophils # (Auto) 7.7 1.6-8.6 10 ^3/uL Lymphocytes # (Auto) 0.9 0.4-5.4 10 ^3/uL Monocytes # (Auto) 0.1 0-1.3 10 ^3/uL Eosinophils # (Auto) 0 0-0.8 10 ^3/uL Basophils # (Auto) 0 0-0.2 10 ^3/uL Nucleated Red Blood Cells 0.0 % Sodium Level 137 136-145 mmol/L Potassium Level 3.9 3.5-5.1 mmol/L Chloride Level 101 98-107 mmol/L Carbon Dioxide Level 26 20-31 mmol/L Anion Gap 10 5-15 Blood Urea Nitrogen 12 9-23 mg/dL Creatinine 0.65 0.550-1.02 mg/dL Glomerular Filtration Rate Calc 96 >90 mL/min BUN/Creatinine Ratio 18.5 10.0-20.0 Serum Glucose 169 H 74-106 mg/dL Hemoglobin A1c 6.7 H <5.7 % A1C Calcium Level 9.9 8.7-10.4 mg/dL Total Bilirubin 0.3 0.2-1.0 mg/dL Aspartate Amino Transferase (AST) 15 13-40 U/L Alanine Aminotransferase (ALT) 16 7-40 U/L Alkaline Phosphatase 96 46-116 U/L Total Protein 8.8 H 5.7-8.2 g/dL Albumin 4.5 3.2-4.8 g/dL Vitamin B12 Level 845 211-911 pg/mL Vitamin D 25-Hydroxy 55.8 30.0-100 ng/mL Folic Acid 30.48 >5.38 ng/mL Thyroid Stimulating Hormone (TSH) 0.79 0.55-4.78 uIU/mL Influenza Type A Antigen Negative Negative Influenza Type B Antigen Negative Negative SARS-CoV-2 Antigen (Rapid) Negative NEGATIVE Troponin I High Sensitivity 3 L </=34 ng/L Test 02/17/25 20:12 02/17/25 18:56 Range/Units Blood Gas Specimen Type Arterial Blood Gas Sample Site Right radial Blood Gas Patient Temperature 37.0 Arterial Blood Date Drawn [id number] Arterial Blood pH 7.429 7.350-7.450 Arterial Blood Partial Pressure CO2 40.9 32.0-45.0 mmHg Arterial Blood Partial Pressure O2 61.5 L 83.0-108.0 mmHg Arterial Blood HCO3 26.5 21.0-28.0 mmol/L Arterial Blood Oxygen Saturation 91.1 L 94.0-98.0 % Arterial Blood Base Excess 2.0 -2.0-3.0 mmol/L Arterial Blood Oxyhemoglobin 90.2 L 94.0-98.0 % Arterial Blood Carboxyhemoglobin 0.5 0.5-1.5 % Arterial Blood Methemoglobin 0.5 0.0-1.5 % Stephen Test Modified Blood Gas Total Hemoglobin 13.20 12.0-16.0 g/dL Blood Gas Modality Room air FiO2 % 21.0 B-Type Natriuretic Peptide 38.48 0-100 pg/mL Assessment Rule out left atrial clot versus vegetation Hypertension Hyperlipidemia History of varicose veins Pneumonia COPD Type 2 diabetes mellitus Anxiety Obesity Plan/Recommendation We will continue with the following plan/recommendations (Dr. Johnson): Case discussed and reviewed with . A transthoracic echocardiogram done on this admission found LVEF hyperdynamic greater than 70% with asymmetric septal hypertrophy. A posterior annulus calcified leaflet was also found and it has been recommended to correlate with a transesophageal echocardiogram to rule out left atrial clot versus vegetation. Given these findings, the patient was offered a transesophageal echocardiogram. Procedure was discussed with patient and her daughter in full detail. All questions answered. The patient is agreeable to undergo the procedure. We will schedule the patient at first availability on 02/20/25. Thank you for allowing us to care for this patient. Please call with any questions or concerns. Critical care time spent: 44 minutes This medical document was created using an electronic medical record system with voice recognition software and computerized dictation system. Although this document has been carefully reviewed, there might still be some phonetic and typographical errors. Occasional wrong-word or ``sound-alike substitutions may have occurred due to the inherent limitations of voice recognition software. These areas are purely typographical due to imperfections of the software programs and do not reflect any compromise in the patient's medical care. Please read the chart carefully and recognize, using context, where these substitutions have occurred. Plan discussed with: Patient NYHA Physical activity limitations: NA Date of Service: Feb 19, 2025 Billing Provider: MAURO DEGROOT Cardiology Common Codes: [id number] INP/OBS CARE (High) Cardiology Consultation Codes: [id number] CONSULT <45MIN MAURO DEGROOT Feb 19, 2025 15:46
[2025-02-19] MEDS: METOPROLOL SUCCINATE XL 50 MG TAB PO SCH (17:31)
[2025-02-20] VITALS (13 sets, daily range): BP systolic 87–152; BP diastolic 44–73; PULSE 57–92; RESP 15–21; TEMP 97.6–98.2; O2SAT 91–98
[2025-02-20] MEDS: fentaNYL CITRATE 100 MCG/2 ML VL IV ONE (11:15)
[2025-02-20] MEDS: LIDOCAINE VISCOUS 2% 15ML UD PO ONE (11:15)
[2025-02-20] MEDS: MIDAZOLAM HCL 2MG/2ML 2ml VIAL (1mg/ml) IV ONE (12:45)
[2025-02-20] MEDS ORDERED: METO-6 PO (12:47)
[2025-02-20] MEDS ORDERED: LOS25T PO (12:47)
[2025-02-20] MEDS ORDERED: AML5T PO (12:47)
[2025-02-20] MEDS ORDERED: METF-490 PO (12:47)
--- NOTE | 2025-02-20 12:51 | DVHDS2 ---
Discharge Summary Date of Admission Feb 17, 2025 at 23:13 Date of Discharge: Feb 18, 2025 Labs/Diagnostic Data: Laboratory Results Test 02/20/25 05:56 02/18/25 08:51 02/18/25 01:50 02/17/25 21:53 POC Glucose 98 mg/dl (70-106) White Blood Count 8.7 10^3/uL (4.4-10.8) Red Blood Count 4.94 10^6/uL (4.0-5.20) Hemoglobin 13.2 g/dL (12.2-16.2) Hematocrit 39.5 % (36.0-46.0) Mean Corpuscular Volume 80.0 fL (80.0-100.0) Mean Corpuscular Hemoglobin 26.7 pg (28.0-32.0) Mean Corpuscular Hemoglobin Concent 33.3 g/dL (32.0-36.0) Red Cell Distribution Width 15.9 % (11.8-14.3) Platelet Count 383 10^3/uL (140-450) Mean Platelet Volume 7.3 fL (6.9-10.8) Neutrophils (%) (Auto) 89.1 % (37.0-80.0) Lymphocytes (%) (Auto) 10.1 % (10.0-50.0) Monocytes (%) (Auto) 0.6 % (0.0-12.0) Eosinophils (%) (Auto) 0.0 % (0.0-7.0) Basophils (%) (Auto) 0.2 % (0.0-2.0) Neutrophils # (Auto) 7.7 10 ^3/uL (1.6-8.6) Lymphocytes # (Auto) 0.9 10 ^3/uL (0.4-5.4) Monocytes # (Auto) 0.1 10 ^3/uL (0-1.3) Eosinophils # (Auto) 0 10 ^3/uL (0-0.8) Basophils # (Auto) 0 10 ^3/uL (0-0.2) Nucleated Red Blood Cells 0.0 % Sodium Level 137 mmol/L (136-145) Potassium Level 3.9 mmol/L (3.5-5.1) Chloride Level 101 mmol/L (98-107) Carbon Dioxide Level 26 mmol/L (20-31) Anion Gap 10 (5-15) Blood Urea Nitrogen 12 mg/dL (9-23) Creatinine 0.65 mg/dL (0.550-1.02) Glomerular Filtration Rate Calc 96 mL/min (>90) BUN/Creatinine Ratio 18.5 (10.0-20.0) Serum Glucose 169 mg/dL (74-106) Hemoglobin A1c 6.7 % A1C (<5.7) Calcium Level 9.9 mg/dL (8.7-10.4) Total Bilirubin 0.3 mg/dL (0.2-1.0) Aspartate Amino Transferase (AST) 15 U/L (13-40) Alanine Aminotransferase (ALT) 16 U/L (7-40) Alkaline Phosphatase 96 U/L (46-116) Total Protein 8.8 g/dL (5.7-8.2) Albumin 4.5 g/dL (3.2-4.8) Vitamin B12 Level 845 pg/mL (211-911) Vitamin D 25-Hydroxy 55.8 ng/mL (30.0-100) Folic Acid 30.48 ng/mL (>5.38) Thyroid Stimulating Hormone (TSH) 0.79 uIU/mL (0.55-4.78) Influenza Type A Antigen Negative (Negative) Influenza Type B Antigen Negative (Negative) SARS-CoV-2 Antigen (Rapid) Negative (NEGATIVE) Troponin I High Sensitivity 3 ng/L (</=34) Test 02/17/25 20:12 02/17/25 18:56 Blood Gas Specimen Type Arterial Blood Gas Sample Site Right radial Blood Gas Patient Temperature 37.0 Arterial Blood Date Drawn [id number] Arterial Blood pH 7.429 (7.350-7.450) Arterial Blood Partial Pressure CO2 40.9 mmHg (32.0-45.0) Arterial Blood Partial Pressure O2 61.5 mmHg (83.0-108.0) Arterial Blood HCO3 26.5 mmol/L (21.0-28.0) Arterial Blood Oxygen Saturation 91.1 % (94.0-98.0) Arterial Blood Base Excess 2.0 mmol/L (-2.0-3.0) Arterial Blood Oxyhemoglobin 90.2 % (94.0-98.0) Arterial Blood Carboxyhemoglobin 0.5 % (0.5-1.5) Arterial Blood Methemoglobin 0.5 % (0.0-1.5) Stephen Test Modified Blood Gas Total Hemoglobin 13.20 g/dL (12.0-16.0) Blood Gas Modality Room air FiO2 % 21.0 B-Type Natriuretic Peptide 38.48 pg/mL (0-100) Other Laboratory Tests 02/18/25 08:51 Brief Hx & Hospital Course: Patient is a 69-year-old female with past medical history of COPD, diabetes, hypertension who comes to the ER at the direction of her PCP. According to the patient and daughter, patient went to attend her regularly scheduled appointment with her PCP where her SpO2 was noted to be 89%, she received breathing treatment at the PCP's office but SpO2 did not improve and patient was subsequently told to go to the hospital. PCP is Dr. Jules. In the ER CXR showed scattered nodular densities possible multifocal pneumonia. On review of systems patient notes cough, nausea and palpitations. Physical exam patient is noted to have trace wheezes throughout and 1+ lower extremity edema. Past Medical History COPD, diabetes, hypertension Past Surgical History Varicose vein surgery Patient stated having long covid, persistent cough since 2019 ECHO TT: LVEF hyperdynamic >70% Asymmetric septal hypertrophy The echo findings are consistent with left ventricular outflow obstruction. AV/LOVT velocities during Valsala 4.5 Vmax, 82 maxPG, 32 mean PG RV function normal Posterior annulus calcified, leaflet thickened. Can not rule out small vegetation. Possible left atrial clot vs vegetation. Recommend clinical correlation and IHSAN as indicated left atrium moderately dilated ECHO findings discussed with the patient, she states she knew that <<her heart was big>> but she didnt fu with any airplane cleaner, she denies syncope or dyspnea, but stated chronic cough, findings were discussed with airplane cleaner. Patient had IHSAN today, no vegettion. stable to discharge home, sent with zksk for 5 days and nebs Condition at Discharge: Good Final Diagnosis/Problems List long covid Discharge Disposition: Home Discharge Instruct/Medications Diet: Renal Activity: Light activity Follow Up/Referral: fu with pcp Medications: resume home meds 39 Discharge Statement: "Patient was advised to return to the ER or call 911 if any headaches, dizziness, shortness of breath, chest pain, abdominal pain, bleeding, fevers, or worsening of medical condition. Patient was counseled about treatment plan, medications, possible side effects, patientverbalized understanding. All questions were answered to the best of my ability. This discharge took greater then 30 minutes in planning, reviewing documentation, counseling the patient, and discussing with other team members." ASSESSMENT ASSESSMENT Assessment #LVEF hyperdynamic >70% #Asymmetric septal hypertrophy # dynamic left ventricular outflow obstruction. #Posterior annulus calcified, leaflet thickened. #left atrium moderately dilated Community-acquired multifocal pneumonia, Gram-positive versus Gram-negative COPD exacerbation due to above Possible long covid Hypertension Hypertensive heart disease Type 2 diabetes Depression, likely MDD Date of Service: Feb 20, 2025 Billing Provider: JILLIAN ANTHONY MD Common Visit Codes: 57185-AWQ/OBS DISCH DAY >30min Date of Service: Feb 18, 2025 Billing Provider: JILLIAN ANTHONY MD Common Visit Codes: 72006-AGZ/OBS DISCH DAY >30min JILLIAN ANTHONY MD Feb 20, 2025 12:51
--- NOTE | 2025-02-20 15:08 | DVHOP ---
DATE OF SURGERY: 02/20/2025 TRANSESOPHAGEAL ECHOCARDIOGRAPHY REPORT PROCEDURE: Transesophageal echocardiogram. INDICATION: Rule out endocarditis. PROCEDURE IN DETAIL: After explaining risks, benefits and alternatives, the patient signed written informed consent. She was given 1 mg of Versed for adequate sedation. The IHSAN probe was introduced without difficulty. After obtaining appropriate echocardiographic image of the heart, the IHSAN probe was completely withdrawn. The patient tolerated the procedure well. There were no immediate post-procedure complications. FINDINGS: * Left ventricle demonstrated mild concentric left ventricular hypertrophy. Left ventricular systolic function is preserved. Ejection fraction is estimated at 65%. There was no regional wall motion abnormality. * Right ventricle was of normal size. Right ventricular systolic pressure was not estimated. * Right and left atria were both of normal size. No evidence of echogenic mass. * Interatrial septum, based on color Doppler study, there is no evidence to suggest interatrial shunt. * Left atrial appendage is free of mass or thrombus. * Aortic valve is mildly thickened, however, no evidence of severe aortic stenosis or regurgitation. * The posterior mitral valve leaflet is thickened and calcified, however, no evidence of vegetation. Mitral valve leaflets open more. There is trace mitral regurgitation and no stenosis. * Tricuspid valve grossly normal. There is trace tricuspid regurgitation, no vegetation. * Pulmonary valve grossly normal. No vegetation. No regurgitation or stenosis. * Pericardium, no evidence of pericardial effusion. * Descending thoracic aorta, ____ no evidence of dissection. SUMMARY: There is mild concentric left ventricular hypertrophy. Left ventricular systolic function is preserved. Ejection fraction is in the range of 65% by gross visual estimate. The posterior mitral valve leaflets appear to be thickened and calcified. There is no evidence of valvular vegetation. MD OMAYRA Mills/HELEN/GAB TID: [id number] RECEIPT: [id number]
[2025-02-20] MEDS ORDERED: LEVO500T91 PO (15:09)
[2025-02-21] MEDS ORDERED: ENOXAPARIN SOD 40 MG/0.4 ML SYRINGE SC SCH (10:00)
== END 2025-02-20 16:25 | disposition home or self-care (01) | DRG 190 ==
LOC: ER 18:30 → OVERFLOW 23:13 → EAST 02-18 03:52
PROVIDERS: ADMIT Student in an Organized Health Care Education/Training Program; ATTEND Student in an Organized Health Care Education/Training Program
PROC: B24BZZ4 Ultrasonography of Heart with Aorta, Transesophageal (ICD-10-PCS; principal; 2025-02-20)
DX: J44.1 Chronic obstructive pulmonary disease with (acute) exacerbation (principal); J15.69 Pneumonia due to other Gram-negative bacteria; J15.9 Unspecified bacterial pneumonia; J44.0 Chronic obstructive pulmonary disease with (acute) lower respiratory infection; E66.9 Obesity, unspecified; E78.5 Hyperlipidemia, unspecified; F32.9 Major depressive disorder, single episode, unspecified; F41.9 Anxiety disorder, unspecified; I11.9 Hypertensive heart disease without heart failure; Z87.442 Personal history of urinary calculi; E11.9 Type 2 diabetes mellitus without complications; Z68.34 Body mass index [BMI] 34.0-34.9, adult; Z79.899 Other long term (current) drug therapy
CPT/HCPCS: 36415; 36600; 71045; 71250; 80053; 82306; 82607; 82746; 82805; 82962; 83036; 83880; 84443; 84484; 85025; 87426; 87804; 93005; 93306; 93312; 94640; 96365; 99291; G0378; J2250; J2543